=== PATIENT | female | born 1945 | race Caucasian/White ===

== ENCOUNTER 2018-05-17 20:55 | Emergency (ER) | payer MEDICARE, OTHER ==
[2018-05-17 21:30] LABS: #Basophils 0.1 thou/uL (0.0-0.2); #Eosinphils 0.3 thou/uL (0.0-0.7); #Lymphocytes 2.6 thou/uL (1.20-3.40); #Monocytes 0.6 thou/uL (0.11-0.59); #Neutrophils 4.7 thou/uL (1.40-6.50); %Eosinophils 3.3 % (0.0-10.0); %Lymphocytes 31.1 % (21.0-51.0); %Monocytes 6.8 % (0.0-10.0); %Neutrophils 57.8 % (42.0-75.0); Hemoglobin 13.9 g/dL (12.0-16.0); Mean Corpuscular HGB CONC 33.3 g/dL (32.0-36.0); Mean Corpuscular Volume 87.2 fL (78.0-98.0); Mean Platelet Volume 7.8 fL (7.4-10.4); Platelet Count 220 thou/uL (130-400); White Blood Cell (WBC) Count 8.2 thou/uL (4.8-10.8)
[2018-05-17 21:35] LABS: INR-International Normal Ratio 0.9; PTT 24.5 SEC (22.9-36.1); Prothrombin Time 11.9 SEC (12.0-14.7)
[2018-05-17] MEDS ORDERED: Adacel (T-DAP) 0.5 ML VIAL ONE (21:36)
[2018-05-17 21:45] LABS: ALT (SGPT) 24 U/L (8-55); AST (SGOT) 17 U/L (5-34); Albumin 4.6 g/dL (3.4-4.8); Alkaline Phosphatase 72 U/L (40-150); Anion Gap 16 mmol/L (10-20); BUN (Urea Nitrogen) 22 mg/dL (9.8-20.1); Bilirubin, Total 0.5 mg/dL (0.2-1.2); CK (CPK) 108 U/L (29-168); Calc. Creatinine Clearance 0 mL/min (70-130); Calcium 9.7 mg/dL (7.8-10.44); Carbon Dioxide 27 mmol/L (23-31); Chloride 102 mmol/L (98-107); Estimated GFR-MDRD 64; Globulin 2.4 g/dL (2.4-3.5); Glucose 113 mg/dL (83-110); Potassium 3.6 mmol/L (3.5-5.1); Sodium 141 mmol/L (136-145)
== END 2018-05-17 22:42 | disposition home or self-care (01) ==
LOC: SCSER 20:55
DX: S91.052A Open bite, left ankle, initial encounter (principal); G51.0 Bell's palsy; E78.5 Hyperlipidemia, unspecified; I10 Essential (primary) hypertension; Z79.899 Other long term (current) drug therapy; Z79.82 Long term (current) use of aspirin; W59.11XA Bitten by nonvenomous snake, initial encounter
CPT/HCPCS: 36415; 80053; 82550; 85025; 85384; 85610; 85730; 90471; 90715; 93005

== ENCOUNTER 2019-06-18 18:30 | Outpatient (CLI) | payer MEDICARE | END 2019-06-18 18:31 | disposition home or self-care (01) | LOC: SLEEPLAB 18:30 | PROVIDERS: ATTEND Internal Medicine | DX: G47.33 Obstructive sleep apnea (adult) (pediatric) (principal); R06.83 Snoring; R35.1 Nocturia; I10 Essential (primary) hypertension | CPT/HCPCS: 95806 ==

== ENCOUNTER 2019-08-26 20:30 | Outpatient (CLI) | payer MEDICARE | END 2019-08-26 20:31 | disposition home or self-care (01) | LOC: SLEEPLAB 20:30 | PROVIDERS: ATTEND Internal Medicine | DX: G47.33 Obstructive sleep apnea (adult) (pediatric) (principal); R06.83 Snoring; R35.1 Nocturia; I10 Essential (primary) hypertension; G47.31 Primary central sleep apnea | CPT/HCPCS: 95811 ==

== ENCOUNTER 2019-09-24 20:30 | Outpatient (CLI) | payer MEDICARE | END 2019-09-24 20:31 | disposition home or self-care (01) | LOC: SLEEPLAB 20:30 | PROVIDERS: ATTEND Internal Medicine | DX: G47.33 Obstructive sleep apnea (adult) (pediatric) (principal); R06.83 Snoring; R35.1 Nocturia; I10 Essential (primary) hypertension; G47.31 Primary central sleep apnea | CPT/HCPCS: 95811 ==

== ENCOUNTER 2023-05-21 09:49 | Outpatient (CLI) | payer MEDICARE | END 2023-05-21 09:50 | disposition home or self-care (01) | LOC: SCSRAD 09:49 | PROVIDERS: ATTEND Nurse Practitioner Family | DX: R07.81 Pleurodynia (principal) ==

== ENCOUNTER 2023-05-28 08:58 | Outpatient (CLI) | payer MEDICARE | END 2023-05-28 08:59 | disposition home or self-care (01) | LOC: CT 08:58 | PROVIDERS: ATTEND Internal Medicine | DX: R10.31 Right lower quadrant pain (principal); N83.8 Other noninflammatory disorders of ovary, fallopian tube and broad ligament | CPT/HCPCS: 74178; 82565 ==